=== PATIENT | female | born 1955 | race Caucasian/White ===

== ENCOUNTER 2017-07-06 05:54 | Day surgery (SDC) | payer BC ==
[2017-07-05 11:03] VITALS: BMI 22.6
[2017-07-06 06:38] VITALS: TEMP 97.9
[2017-07-06] MEDS ORDERED: LACTATED RINGERS SOLUTION 1,000 ML IV SCH (07:00)
[2017-07-06 07:18] LABS: EOSINOPHIL 2.4 % (0-4.5); MCH 25.6 pg (25.7-33.7); MCHC 32.2 g/dl (32.0-36.0); MEAN CELL VOLUME 79.5 fl (80-96); MEAN PLT VOLUME 11.6 fl (7.5-11.1); NEUTROPHILS 42.8 % (42.8-82.8); PLATELET COUNT 139 K/MM3 (134-434); RDW 16.1 % (11.6-15.6); WHITE BLOOD COUNT 4.1 K/mm3 (4.0-10.8)
--- NOTE | 2017-07-06 07:19 | HP ---
Admitting History and Physical - Admission History of Present Illness: Patient is a 62 y/o female with a past medical history of depression, chron's disease, CAD, [place], hyperlipidemia, and stress induced cardiomyopathy. Patient presents for ect, she reports receiving ect in 2013 after an admission in [facility] for depression. She reports ongoing feelings of depression and has tried several medication regimens with no relief. She denies any suicidal or homicidal ideation, visual or auditory hallucinations. History Source: Patient Limitations to Obtaining History: No Limitations - Past Medical History Cardiovascular: Yes: CAD, Hyperlipdemia, [place] Gastrointestinal: Yes: Crohn's Disease - Smoking History Smoking history: Never smoked Have you smoked in the past 12 months: No - Alcohol/Substance Use Hx Alcohol Use: No History of Substance Use: reports: None - Social History Usual Living Arrangement: Yes: With Spouse ADL: Independent History of Recent Travel: No Home Medications - Allergies Allergies/Adverse Reactions: Allergies Allergy/AdvReac Type Severity Reaction Status Date / Time Sulfa (Sulfonamide Allergy Intermediate Rash Verified 07/05/17 10:32 Antibiotics) - Home Medications Home Medications: Ambulatory Orders Aspirin [[place] Aspirin] 81 mg PO HS 07/05/17 Atenolol [Tenormin] 12.5 mg PO HS 07/05/17 Buprenorphine HCl/Naloxone HCl [Suboxone 8 mg-2 mg Sl Tablets] 1 each SL BID Calcium Carb/Vitamin D3/Vit K1 [Viactiv Soft Chew Tablet] 1 each PO BID Cholecalciferol (Vitamin D3) [Vitamin D3] 2,000 unit PO DAILY 07/05/17 Hydroxyzine HCl [Atarax -] 25 mg PO HS 07/05/17 Levomefolate/Algal Oil [l-Methylfolate Forte 15 mg Cap] 1 each PO DAILY Levomilnacipran HCl [Fetzima] 120 mg PO DAILY 07/05/17 Multivitamins [Tab-A-Vit -] 1 tab PO DAILY 07/05/17 Omeprazole 40 mg PO DAILY 07/05/17 Pentosan Polysulfate Sodium [Elmiron] 300 mg PO BID 07/05/17 Pregabalin [Lyrica -] 50 mg PO BID 07/05/17 Raloxifene HCl [Evista (Nf) -] 60 mg PO DAILY 07/05/17 Rosuvastatin [Crestor -] 20 mg PO HS 07/05/17 Vit C/E/Zn/Coppr/Lutein/Zeaxan [Preservision Areds 2 Softgel] 1 each PO BID Cyclosporine [Restasis] 1 drop OU HS 07/06/17 Family Disease History - Family Disease History Family Disease History: Heart Disease: Father, Mother, Other: Daughter (heroin abuse ) Review of Systems - Review of Systems Constitutional: reports: No Symptoms Eyes: reports: No Symptoms HENT: reports: No Symptoms Neck: reports: No Symptoms Cardiovascular: reports: No Symptoms Respiratory: reports: No Symptoms Gastrointestinal: reports: No Symptoms Genitourinary: reports: No Symptoms Musculoskeletal: reports: No Symptoms Integumentary: reports: No Symptoms Neurological: reports: No Symptoms Endocrine: reports: No Symptoms Hematology/Lymphatic: reports: No Symptoms Psychiatric: reports: Depression Physical Examination Vital Signs: Vital Signs Temperature 97.9 F 07/06/17 06:30 Pulse Rate 72 07/06/17 06:30 Respiratory Rate 18 07/06/17 06:30 Blood Pressure 107/67 07/06/17 06:30 O2 Sat by Pulse Oximetry (%) 100 07/06/17 06:30 Constitutional: Yes: Well Nourished, No Distress, Calm Eyes: Yes: WNL, Conjunctiva Clear, EOM Intact HENT: Yes: WNL, Atraumatic, Normocephalic Neck: Yes: WNL, Supple, Trachea Midline Cardiovascular: Yes: WNL, Regular Rate and Rhythm, S1, S2 Respiratory: Yes: WNL, Regular, CTA Bilaterally Gastrointestinal: Yes: WNL, Normal Bowel Sounds, Soft ...Rectal Exam: Yes: Deferred Renal/: Yes: WNL Breast(s): Yes: WNL Musculoskeletal: Yes: WNL Extremities: Yes: WNL Edema: No Peripheral Pulses WNL: Yes Peripheral Pulses: Left Radial: 4+, Right Radial: 4+, Left Doralis Pedis: 3+, Right Dorsalis Pedis: 3+, Left Femoral: 3+, Right Femoral: 3+ Integumentary: Yes: WNL Neurological: Yes: WNL, Alert, Oriented ...Motor Strength: WNL Psychiatric: Yes: WNL, Alert, Oriented Labs: CBC, BMP 07/06/17 06:00 CBC WBC 4.1 K/mm3 (4.0-10.8) 07/06/17 06:00 RBC 3.71 M/mm3 (3.60-5.2) 07/06/17 06:00 Hgb 9.5 GM/dl (10.7-15.3) L 07/06/17 06:00 Hct 29.5 % (32.4-45.2) L 07/06/17 06:00 MCV 79.5 fl (80-96) L 07/06/17 06:00 MCH 25.6 pg (25.7-33.7) L 07/06/17 06:00 MCHC 32.2 g/dl (32.0-36.0) 07/06/17 06:00 RDW 16.1 % (11.6-15.6) H 07/06/17 06:00 Plt Count 139 K/MM3 (134-434) 07/06/17 06:00 MPV 11.6 fl (7.5-11.1) H 07/06/17 06:00 Neutrophils % 42.8 % (42.8-82.8) 07/06/17 06:00 Lymphocytes % 42.1 % (8-40) H 07/06/17 06:00 Monocytes % 11.7 % (3.8-10.2) H 07/06/17 06:00 Eosinophils % 2.4 % (0-4.5) 07/06/17 06:00 Basophils % 1.0 % (0-2.0) 07/06/17 06:00 Imaging - Results EKG: Image Reviewed, Other (nsr) Other: Other (nuclear stress, no ischemic changes echo lvef 55%) Assessment/Plan patient is a 62 y/o female that presents for ect, labs and ekg reviewed, no signs of fluid overload noted on exam, patient is medically optimized for procedure informed consent, risk/benefits to be obtained by Dr George.
[2017-07-06] MEDS ORDERED: KETAMINE HCL 500 MG/10 ML VIAL ONE (08:11)
[2017-07-06 10:09] VITALS: PULSE 76
[2017-07-06 10:10] VITALS: BP 112/77
== END 2017-07-06 10:30 | disposition home or self-care (01) ==
LOC: FECT 05:54
PROVIDERS: ATTEND Psychiatry & Neurology Psychiatry
PROC: GZB4ZZZ Other Electroconvulsive Therapy (ICD-10-PCS; principal; 2017-07-06 08:00)
DX: F33.2 Major depressive disorder, recurrent severe without psychotic features (principal)
CPT/HCPCS: 36415; 80051; 82565; 85025; 90870; 94760

== ENCOUNTER 2017-07-08 05:49 | Day surgery (SDC) | payer BC ==
[2017-07-06 07:50] VITALS: BMI 22.6
[2017-07-08] MEDS ORDERED: KETAMINE HCL 500 MG/10 ML VIAL ONE (06:55)
[2017-07-08 08:07] VITALS: TEMP 98.2
[2017-07-08] MEDS ORDERED: ONDANSETRON 4 MG/2 ML VIAL IVPUSH PRN (09:31)
[2017-07-08] MEDS ORDERED: LACTATED RINGERS SOLUTION 1,000 ML IV SCH (09:45)
[2017-07-08 10:29] VITALS: BP 122/74; PULSE 62
== END 2017-07-08 10:10 | disposition home or self-care (01) ==
LOC: FECT 05:49
PROVIDERS: ATTEND Psychiatry & Neurology Psychiatry
PROC: GZB4ZZZ Other Electroconvulsive Therapy (ICD-10-PCS; principal; 2017-07-08 08:00)
DX: F33.2 Major depressive disorder, recurrent severe without psychotic features (principal)
CPT/HCPCS: 90870; 94760

== ENCOUNTER 2017-07-11 05:40 | Day surgery (SDC) | payer BC ==
[2017-07-06 07:53] VITALS: BMI 22.6
[2017-07-11] MEDS ORDERED: KETAMINE HCL 500 MG/10 ML VIAL ONE (07:26)
[2017-07-11 08:42] VITALS: TEMP 97.5
[2017-07-11 09:50] VITALS: BP 134/78; PULSE 64
[2017-07-11] MEDS ORDERED: ONDANSETRON 4 MG/2 ML VIAL IVPUSH PRN (12:56)
[2017-07-11] MEDS ORDERED: LACTATED RINGERS SOLUTION 1,000 ML IV SCH (13:00)
== END 2017-07-11 09:50 | disposition home or self-care (01) ==
LOC: FECT 05:40
PROVIDERS: ATTEND Psychiatry & Neurology Psychiatry
PROC: GZB4ZZZ Other Electroconvulsive Therapy (ICD-10-PCS; principal; 2017-07-11 07:30)
DX: F33.2 Major depressive disorder, recurrent severe without psychotic features (principal)
CPT/HCPCS: 90870; 94760

== ENCOUNTER 2017-07-13 05:40 | Day surgery (SDC) | payer BC ==
[2017-07-06 07:56] VITALS: BMI 22.6
[2017-07-13] MEDS ORDERED: KETAMINE HCL 500 MG/10 ML VIAL ONE (07:14)
[2017-07-13] MEDS ORDERED: LACTATED RINGERS SOLUTION 1,000 ML IV SCH (07:45)
[2017-07-13 08:13] VITALS: TEMP 97.5
[2017-07-13 08:55] VITALS: BP 118/78; PULSE 81
== END 2017-07-13 09:15 | disposition home or self-care (01) ==
LOC: FECT 05:40
PROVIDERS: ATTEND Psychiatry & Neurology Psychiatry
PROC: GZB4ZZZ Other Electroconvulsive Therapy (ICD-10-PCS; principal; 2017-07-13 07:45)
DX: F33.2 Major depressive disorder, recurrent severe without psychotic features (principal)
CPT/HCPCS: 90870; 94760

== ENCOUNTER 2017-07-15 05:41 | Day surgery (SDC) | payer BC ==
[2017-07-06 08:23] VITALS: BMI 22.6
[2017-07-15] MEDS ORDERED: KETAMINE HCL 500 MG/10 ML VIAL ONE (07:02)
[2017-07-15 08:10] VITALS: TEMP 97.6
[2017-07-15] MEDS ORDERED: ONDANSETRON 4 MG/2 ML VIAL IVPUSH PRN (08:55)
[2017-07-15] MEDS ORDERED: LACTATED RINGERS SOLUTION 1,000 ML IV SCH (09:00)
[2017-07-15 10:18] VITALS: BP 122/72; PULSE 72
== END 2017-07-15 09:20 | disposition home or self-care (01) ==
LOC: FECT 05:41
PROVIDERS: ATTEND Psychiatry & Neurology Psychiatry
PROC: GZB4ZZZ Other Electroconvulsive Therapy (ICD-10-PCS; principal; 2017-07-15 07:15)
DX: F33.2 Major depressive disorder, recurrent severe without psychotic features (principal)
CPT/HCPCS: 90870; 94760

== ENCOUNTER 2017-07-18 05:39 | Day surgery (SDC) | payer BC ==
[2017-07-07 11:51] VITALS: BMI 22.6
[2017-07-18] MEDS ORDERED: KETAMINE HCL 500 MG/10 ML VIAL ONE (06:48)
[2017-07-18 08:22] VITALS: TEMP 98.2
[2017-07-18 09:12] VITALS: BP 114/58; PULSE 82
== END 2017-07-18 09:14 | disposition home or self-care (01) ==
LOC: FECT 05:39
PROVIDERS: ATTEND Psychiatry & Neurology Psychiatry
PROC: GZB4ZZZ Other Electroconvulsive Therapy (ICD-10-PCS; principal; 2017-07-18 07:00)
DX: F33.2 Major depressive disorder, recurrent severe without psychotic features (principal)
CPT/HCPCS: 90870; 94760

== ENCOUNTER 2017-07-20 05:39 | Day surgery (SDC) | payer BC ==
[2017-07-11 13:44] VITALS: BMI 22.6
[2017-07-20 06:44] VITALS: TEMP 97.9
[2017-07-20] MEDS ORDERED: KETAMINE HCL 500 MG/10 ML VIAL ONE (07:34)
[2017-07-20 08:58] VITALS: BP 114/69; PULSE 66
== END 2017-07-20 09:25 | disposition home or self-care (01) ==
LOC: FECT 05:39
PROVIDERS: ATTEND Psychiatry & Neurology Psychiatry
PROC: GZB4ZZZ Other Electroconvulsive Therapy (ICD-10-PCS; principal; 2017-07-20 07:00)
DX: F33.2 Major depressive disorder, recurrent severe without psychotic features (principal)
CPT/HCPCS: 90870; 94760

== ENCOUNTER 2017-07-22 05:39 | Day surgery (SDC) | payer BC ==
[2017-07-22 06:22] VITALS: BMI 22.6
[2017-07-22] MEDS ORDERED: KETAMINE HCL 500 MG/10 ML VIAL ONE (06:59)
[2017-07-22 08:02] VITALS: TEMP 98.5
[2017-07-22 09:19] VITALS: BP 118/78; PULSE 66
== END 2017-07-22 09:15 | disposition home or self-care (01) ==
LOC: FECT 05:39
PROVIDERS: ATTEND Psychiatry & Neurology Psychiatry
PROC: GZB4ZZZ Other Electroconvulsive Therapy (ICD-10-PCS; principal; 2017-07-22 07:00)
DX: F33.2 Major depressive disorder, recurrent severe without psychotic features (principal)
CPT/HCPCS: 90870; 94760

== ENCOUNTER → 2017-07-25 | Day surgery (SDC) | payer BC ==
[~2017-07-25] MED LIST: ACETAMINOPHEN 325 MG TABLET (FP) ONE; KETAMINE HCL 500 MG/10 ML VIAL ONE
[2017-07-25 06:20] VITALS: BMI 22.6
[2017-07-25 08:04] VITALS: BP 116/72; PULSE 66; TEMP 97.8
== END | disposition home or self-care (01) ==
LOC: FECT 05:40
PROVIDERS: ATTEND Psychiatry & Neurology Psychiatry
PROC: GZB4ZZZ Other Electroconvulsive Therapy (ICD-10-PCS; principal; 2017-07-25 07:00)
DX: F33.2 Major depressive disorder, recurrent severe without psychotic features (principal)
CPT/HCPCS: 90870; 94760

== ENCOUNTER 2017-07-27 05:43 | Day surgery (SDC) | payer BC ==
[2017-07-20 17:05] VITALS: BMI 22.6
[2017-07-27] MEDS ORDERED: KETAMINE HCL 500 MG/10 ML VIAL ONE (07:16)
[2017-07-27] MEDS ORDERED: ACETAMINOPHEN 325 MG TABLET (FP) PO ONE (08:02)
[2017-07-27 08:17] VITALS: TEMP 97.7
[2017-07-27 12:38] VITALS: BP 116/70; PULSE 65
== END 2017-07-27 08:55 | disposition home or self-care (01) ==
LOC: FECT 05:43
PROVIDERS: ATTEND Psychiatry & Neurology Psychiatry
PROC: GZB4ZZZ Other Electroconvulsive Therapy (ICD-10-PCS; principal; 2017-07-27 07:00)
DX: F33.2 Major depressive disorder, recurrent severe without psychotic features (principal)
CPT/HCPCS: 90870; 94760

== ENCOUNTER 2017-07-29 05:39 | Day surgery (SDC) | payer BC ==
[2017-07-20 17:09] VITALS: BMI 22.6
[2017-07-29] MEDS ORDERED: KETAMINE HCL 500 MG/10 ML VIAL ONE (07:04)
[2017-07-29] MEDS ORDERED: ONDANSETRON 4 MG/2 ML VIAL IVPUSH PRN (07:36)
[2017-07-29] MEDS ORDERED: LACTATED RINGERS SOLUTION 1,000 ML IV SCH (07:45)
[2017-07-29 07:53] VITALS: TEMP 98
[2017-07-29 08:32] VITALS: BP 118/74; PULSE 61
[2017-07-29] MEDS ORDERED: TRANEXAMIC ACID 1000 MG/10 ML VIAL ONE (09:57)
== END 2017-07-29 08:45 | disposition home or self-care (01) ==
LOC: FECT 05:39
PROVIDERS: ATTEND Psychiatry & Neurology Psychiatry
PROC: GZB4ZZZ Other Electroconvulsive Therapy (ICD-10-PCS; principal; 2017-07-29 07:00)
DX: F33.2 Major depressive disorder, recurrent severe without psychotic features (principal)
CPT/HCPCS: 90870; 94760

== ENCOUNTER 2017-08-01 05:42 | Day surgery (SDC) | payer BC ==
[2017-07-25 08:13] VITALS: BMI 22.6
[2017-08-01 08:45] VITALS: PULSE 58; TEMP 97.5
[2017-08-01 09:10] VITALS: BP 111/69
[2017-08-01] MEDS ORDERED: ONDANSETRON 4 MG/2 ML VIAL IVPUSH PRN (09:44)
== END 2017-08-01 09:32 | disposition home or self-care (01) ==
LOC: FECT 05:42
PROVIDERS: ATTEND Psychiatry & Neurology Psychiatry
PROC: GZB4ZZZ Other Electroconvulsive Therapy (ICD-10-PCS; principal; 2017-08-01 07:15)
DX: F33.2 Major depressive disorder, recurrent severe without psychotic features (principal)
CPT/HCPCS: 90870; 94760

== ENCOUNTER 2017-08-03 05:41 | Day surgery (SDC) | payer BC ==
[2017-08-01 17:13] VITALS: BMI 22.6
[2017-08-03] MEDS ORDERED: KETAMINE HCL 500 MG/10 ML VIAL ONE (06:57)
[2017-08-03 08:06] VITALS: TEMP 97.9
[2017-08-03 09:11] VITALS: BP 105/65; PULSE 62
== END 2017-08-03 09:14 | disposition home or self-care (01) ==
LOC: FECT 05:41
PROVIDERS: ATTEND Psychiatry & Neurology Psychiatry
PROC: GZB4ZZZ Other Electroconvulsive Therapy (ICD-10-PCS; principal; 2017-08-03 08:15)
DX: F33.2 Major depressive disorder, recurrent severe without psychotic features (principal)
CPT/HCPCS: 90870; 94760

== ENCOUNTER 2017-08-05 05:45 | Day surgery (SDC) | payer BC ==
[2017-08-03 07:26] VITALS: BMI 22.6
[2017-08-05] MEDS ORDERED: KETAMINE HCL 500 MG/10 ML VIAL ONE (08:04)
[2017-08-05] MEDS ORDERED: ONDANSETRON 4 MG/2 ML VIAL IVPUSH PRN (08:17)
[2017-08-05] MEDS ORDERED: PROMETHAZINE HCL 25 MG/1 ML VIAL IVPUSH PRN (08:17)
[2017-08-05] MEDS ORDERED: LACTATED RINGERS SOLUTION 1,000 ML IV SCH (08:30)
[2017-08-05 09:10] VITALS: TEMP 98.1
[2017-08-05] MEDS ORDERED: ACETAMINOPHEN 325 MG TABLET (FP) ONE (09:52)
[2017-08-05 09:55] VITALS: BP 120/80; PULSE 74
== END 2017-08-05 10:00 | disposition home or self-care (01) ==
LOC: FECT 05:45
PROVIDERS: ATTEND Psychiatry & Neurology Psychiatry
PROC: GZB4ZZZ Other Electroconvulsive Therapy (ICD-10-PCS; principal; 2017-08-05 08:00)
DX: F33.2 Major depressive disorder, recurrent severe without psychotic features (principal)
CPT/HCPCS: 90870; 94760

== ENCOUNTER → 2017-08-08 | Day surgery (SDC) | payer BC ==
[2017-08-03 13:12] VITALS: BMI 22.6
[~2017-08-08] MED LIST changes: -ACETAMINOPHEN 325 MG TABLET (FP) ONE; +LACTATED RINGERS SOLUTION 1,000 ML IV SCH; +ONDANSETRON 4 MG/2 ML VIAL IVPUSH PRN; +PROMETHAZINE HCL 25 MG/1 ML VIAL IVPUSH PRN
--- NOTE | 2017-08-08 07:20 | HP ---
Admitting History and Physical - Admission History of Present Illness: patient is a 62 y/o female with a past medical history of depression, chrohn' s disease, CAD, [place], hyperlipidemia and stress induced cardiomyopathy. Patient presents for ect, her last ect was 08/05/17. Patient reports ongoing feelings of depression. She reports not much improvement of depressive symptoms since starting ect. Patient is weaning down her suboxone to 4mg daily in preparation for her upcoming colectomy that is scheduled on 09/07 at [facility].patient denies any suicidal or homicidal ideation, visual or auditory hallucinations. History Source: Patient Limitations to Obtaining History: No Limitations - Past Medical History Cardiovascular: Yes: CAD, Hyperlipdemia, [place] Gastrointestinal: Yes: Crohn's Disease - Smoking History Smoking history: Never smoked Have you smoked in the past 12 months: No - Alcohol/Substance Use Hx Alcohol Use: No History of Substance Use: reports: None - Social History Usual Living Arrangement: Yes: With Spouse ADL: Independent History of Recent Travel: No Home Medications - Allergies Allergies/Adverse Reactions: Allergies Allergy/AdvReac Type Severity Reaction Status Date / Time Sulfa (Sulfonamide Allergy Intermediate Rash Verified 07/15/17 06:08 Antibiotics) - Home Medications Home Medications: Ambulatory Orders Aspirin [[place] Aspirin] 81 mg PO HS 07/05/17 Atenolol [Tenormin] 12.5 mg PO HS 07/05/17 Buprenorphine HCl/Naloxone HCl [Suboxone 8 mg-2 mg Sl Tablets] 1 each SL BID Calcium Carb/Vitamin D3/Vit K1 [Viactiv Soft Chew] 1 each PO BID 07/05/17 Cholecalciferol (Vitamin D3) [Vitamin D3] 2,000 unit PO BID 07/05/17 Hydroxyzine HCl [Atarax -] 25 mg PO HS 07/05/17 Levomefolate/Algal Oil [l-Methylfolate Forte 15 mg Cap] 1 each PO DAILY Levomilnacipran HCl [Fetzima] 120 mg PO DAILY 07/05/17 Multivitamins [Multivit ([facility] Formulary)] 1 tab PO DAILY 07/05/17 Omeprazole 40 mg PO DAILY 07/05/17 Pentosan Polysulfate Sodium [Elmiron] 300 mg PO BID 07/05/17 Pregabalin [Lyrica -] 50 mg PO BID 07/05/17 Raloxifene HCl [Evista (Nf) -] 60 mg PO DAILY 07/05/17 Rosuvastatin [Crestor -] 20 mg PO HS 07/05/17 Vit C/E/Zn/Coppr/Lutein/Zeaxan [Preservision Areds 2 Softgel] 1 each PO BID Cyclosporine [Restasis] 1 drop OU HS 07/06/17 Family Disease History - Family Disease History Family Disease History: Heart Disease: Father, Mother, Other: Daughter (heroin abuse ) Review of Systems - Review of Systems Constitutional: reports: No Symptoms Eyes: reports: No Symptoms HENT: reports: No Symptoms Neck: reports: No Symptoms Cardiovascular: reports: No Symptoms Respiratory: reports: No Symptoms Gastrointestinal: reports: No Symptoms Genitourinary: reports: No Symptoms Musculoskeletal: reports: No Symptoms Integumentary: reports: No Symptoms Neurological: reports: No Symptoms Endocrine: reports: No Symptoms Hematology/Lymphatic: reports: No Symptoms Psychiatric: reports: Depression Physical Examination Constitutional: Yes: Well Nourished, No Distress, Calm Eyes: Yes: WNL, Conjunctiva Clear, EOM Intact HENT: Yes: WNL, Atraumatic, Normocephalic Neck: Yes: WNL, Supple, Trachea Midline Cardiovascular: Yes: WNL, Regular Rate and Rhythm, S1, S2 Respiratory: Yes: WNL, Regular, CTA Bilaterally Gastrointestinal: Yes: WNL, Normal Bowel Sounds, Soft ...Rectal Exam: Yes: Deferred Renal/: Yes: WNL Breast(s): Yes: WNL Musculoskeletal: Yes: WNL Extremities: Yes: WNL Edema: No Peripheral Pulses WNL: Yes Integumentary: Yes: WNL Neurological: Yes: WNL, Alert, Oriented ...Motor Strength: WNL Psychiatric: Yes: WNL, Alert, Oriented, Other (flat affect) Labs: reviewed 07/06/17 Imaging - Results EKG: Other (nsr) Other: Other (lvef 55%) Assessment/Plan patient is a 62 y/o female that presents for ect, labs and ekg reviewed patient is medically optimized for procedure informed consent, risks/benefits to be obtained by Dr George.
[2017-08-08 09:10] VITALS: TEMP 97.8
[2017-08-08 10:24] VITALS: BP 118/70; PULSE 59
== END | disposition home or self-care (01) ==
LOC: FECT 05:27
PROVIDERS: ATTEND Psychiatry & Neurology Psychiatry
PROC: GZB4ZZZ Other Electroconvulsive Therapy (ICD-10-PCS; principal; 2017-08-08 07:30)
DX: F33.2 Major depressive disorder, recurrent severe without psychotic features (principal)
CPT/HCPCS: 90870; 94760

== ENCOUNTER 2017-08-19 07:27 | Day surgery (SDC) | payer BC ==
[2017-08-19 07:43] VITALS: TEMP 98.1; BMI 22.6
[2017-08-19] MEDS ORDERED: KETAMINE HCL 500 MG/10 ML VIAL ONE (08:51)
[2017-08-19 10:27] VITALS: BP 113/68; PULSE 72
== END 2017-08-19 10:30 | disposition home or self-care (01) ==
LOC: FECT 07:27
PROVIDERS: ATTEND Psychiatry & Neurology Psychiatry
PROC: GZB4ZZZ Other Electroconvulsive Therapy (ICD-10-PCS; principal; 2017-08-19 08:45)
DX: F33.2 Major depressive disorder, recurrent severe without psychotic features (principal)
CPT/HCPCS: 90870; 94760

== ENCOUNTER 2017-11-25 05:48 | Day surgery (SDC) | payer BC ==
[2017-11-25 07:31] VITALS: BMI 20.9
[2017-11-25 07:33] VITALS: TEMP 97.9
[2017-11-25] MEDS ORDERED: ONDANSETRON 4 MG/2 ML VIAL IVPUSH PRN (07:46)
[2017-11-25] MEDS ORDERED: oxyCODONE HCL 5 MG TABLET PO PRN (07:46)
--- NOTE | 2017-11-25 08:14 | HP ---
Admitting History and Physical - Admission History of Present Illness: Patient is a 62 y/o female with a past medical history of chrohn's disease, depression, CAD, [place], hyperlipidemia, and stress induced cardiomyopathy. Patient is a s/p colectomy, 09/12/17. Patient presents for ect, her last ect was 08/19/17. Patient reports ongoing depression, she reports compliance with prescribed medications. She denies any suicidal or homicidal ideation, visual or auditory hallucinations. History Source: Patient Limitations to Obtaining History: No Limitations - Past Medical History Cardiovascular: Yes: CAD, Hyperlipdemia, [place] Gastrointestinal: Yes: Crohn's Disease - Smoking History Smoking history: Never smoked Have you smoked in the past 12 months: No - Alcohol/Substance Use Hx Alcohol Use: No History of Substance Use: reports: None - Social History Usual Living Arrangement: Yes: With Spouse ADL: Independent History of Recent Travel: No Home Medications - Allergies Allergies/Adverse Reactions: Allergies Allergy/AdvReac Type Severity Reaction Status Date / Time Sulfa (Sulfonamide Allergy Intermediate Rash Verified 07/15/17 06:08 Antibiotics) - Home Medications Home Medications: Ambulatory Orders Aspirin [[place] Aspirin] 81 mg PO HS 07/05/17 Atenolol [Tenormin] 12.5 mg PO HS 07/05/17 Calcium Carb/Vitamin D3/Vit K1 [Viactiv Soft Chew] 1 each PO BID 07/05/17 Cholecalciferol (Vitamin D3) [Vitamin D3] 2,000 unit PO BID 07/05/17 Levomefolate/Algal Oil [l-Methylfolate Forte 15 mg Cap] 1 each PO DAILY Levomilnacipran HCl [Fetzima] 120 mg PO DAILY 07/05/17 Multivitamins [Multivit ([facility] Formulary)] 1 tab PO DAILY 07/05/17 Omeprazole 40 mg PO DAILY 07/05/17 Pentosan Polysulfate Sodium [Elmiron] 300 mg PO BID 07/05/17 Raloxifene HCl [Evista (Nf) -] 60 mg PO DAILY 07/05/17 Rosuvastatin [Crestor -] 20 mg PO HS 07/05/17 Vit C/E/Zn/Coppr/Lutein/Zeaxan [Preservision Areds 2 Softgel] 1 each PO BID hydrOXYzine HCL [Atarax -] 25 mg PO HS 07/05/17 Cyclosporine [Restasis] 1 drop OU HS 07/06/17 Fentanyl 1 each TD ASDIR 08/19/17 Folic Acid 1 mg PO DAILY 11/25/17 HYDROmorphone [Dilaudid -] 4 mg PO Q4H 11/25/17 Iron,Carbonyl [Feosol] 45 mg PO BID 11/25/17 Pramipexole Di-HCl [Mirapex] 0.25 mg PO HS 11/25/17 Ustekinumab [Stelara] 90 mg SQ ASDIR 11/25/17 Family Disease History - Family Disease History Family Disease History: Heart Disease: Father, Mother, Other: Daughter (heroin abuse ) Review of Systems - Review of Systems Constitutional: reports: No Symptoms Eyes: reports: No Symptoms HENT: reports: No Symptoms Neck: reports: No Symptoms Cardiovascular: reports: No Symptoms Respiratory: reports: No Symptoms Gastrointestinal: reports: No Symptoms Genitourinary: reports: No Symptoms Musculoskeletal: reports: No Symptoms Integumentary: reports: No Symptoms Neurological: reports: No Symptoms Endocrine: reports: No Symptoms Hematology/Lymphatic: reports: No Symptoms Psychiatric: reports: Depression Physical Examination Vital Signs: Vital Signs Temperature 97.9 F 11/25/17 07:20 Pulse Rate 81 11/25/17 07:20 Respiratory Rate 18 11/25/17 07:20 Blood Pressure 89/62 11/25/17 07:20 O2 Sat by Pulse Oximetry (%) 100 11/25/17 07:20 Constitutional: Yes: No Distress, Thin Eyes: Yes: WNL, Conjunctiva Clear, EOM Intact HENT: Yes: WNL, Atraumatic, Normocephalic Neck: Yes: WNL, Supple, Trachea Midline Cardiovascular: Yes: WNL, Regular Rate and Rhythm, S1, S2 Respiratory: Yes: WNL, Regular, CTA Bilaterally Gastrointestinal: Yes: WNL, Normal Bowel Sounds, Soft, Other (surgical site well approximated, no erythema no induration noted) ...Rectal Exam: Yes: Deferred Renal/: Yes: WNL Breast(s): Yes: WNL Musculoskeletal: Yes: WNL Extremities: Yes: WNL Edema: No Peripheral Pulses WNL: Yes Peripheral Pulses: Left Radial: 4+, Right Radial: 4+, Left Doralis Pedis: 3+, Right Dorsalis Pedis: 3+, Left Femoral: 3+, Right Femoral: 3+ Integumentary: Yes: WNL Neurological: Yes: WNL, Alert, Oriented ...Motor Strength: WNL Psychiatric: Yes: WNL, Alert, Oriented Labs: reviewed 07/08 Imaging - Results EKG: Image Reviewed, Other (nsr) Assessment/Plan patient is a 62 y/o female that presents for ect, labs and ekg reviewed patient is medically optimized for procedure informed consent, risks benefits to be obtained by Dr George.
[2017-11-25] MEDS ORDERED: KETAMINE HCL 500 MG/10 ML VIAL ONE (08:27)
[2017-11-25 09:42] VITALS: BP 110/74; PULSE 77
[2017-11-25 10:43] LABS: ALBUMIN 3.7 g/dl (3.5-5.0); ALK PHOS 64 U/L (32-92); ANION GAP 4 (8-16); BILIRUBIN,TOTAL < 0.5 mg/dl (0.2-1.0); BLOOD UREA NITROGEN 13 mg/dl (7-18); CALCIUM 9.1 mg/dl (8.4-10.2); CHLORIDE 107 mmol/L (98-107); CO2 26 mmol/L (22-28); CREATININE < 0.8 mg/dl (0.6-1.3); GLUCOSE,RANDOM 125 mg/dl (74-106); POTASSIUM 4.2 mmol/L (3.5-5.1); SGOT/AST 22 U/L (10-42); SGPT/ALT 19 U/L (10-40); SODIUM 137 mmol/L (136-145); TOT PROT 7.1 g/dl (6.4-8.3)
[2017-11-25 13:01] LABS: HEMATOCRIT 38.8 % (32.4-45.2); HEMOGLOBIN 12.3 GM/dL (10.7-15.3); MCH 26.9 pg (25.7-33.7); MCHC 31.8 g/dl (32.0-36.0); MEAN CELL VOLUME 84.5 fl (80-96); MEAN PLT VOLUME 10.1 fl (7.5-11.1); PLATELET COUNT 171 K/MM3 (134-434); RBC 4.59 M/mm3 (3.60-5.2); RDW 24.7 % (11.6-15.6); WHITE BLOOD COUNT 3.3 K/mm3 (4.0-10.0)
--- NOTE | 2017-11-26 11:00 | EKG ---
Test Reason : Blood Pressure : / mmHG Vent. Rate : 074 BPM Atrial Rate : 074 BPM P-R Int : 156 ms QRS Dur : 092 ms QT Int : 432 ms P-R-T Axes : 043 023 052 degrees QTc Int : 479 ms NORMAL SINUS RHYTHM NORMAL ECG NO PREVIOUS ECGS AVAILABLE Confirmed by FAISAL MACKAY, EB ([id number]) on 11/26/2017 10:59:49 AM Referred By: Terence George Confirmed By:EB MALONE MD
== END 2017-11-25 10:10 | disposition home or self-care (01) ==
LOC: FECT 05:48
PROVIDERS: ATTEND Psychiatry & Neurology Psychiatry
PROC: GZB4ZZZ Other Electroconvulsive Therapy (ICD-10-PCS; principal; 2017-11-25 08:15)
DX: F33.2 Major depressive disorder, recurrent severe without psychotic features (principal)
CPT/HCPCS: 36415; 80053; 85027; 90870; 93005; 94760

== ENCOUNTER 2017-11-28 05:39 | Day surgery (SDC) | payer BC ==
[2017-11-25 10:35] VITALS: BMI 20.9
[2017-11-28 06:08] VITALS: TEMP 98
[2017-11-28] MEDS ORDERED: KETAMINE HCL 500 MG/10 ML VIAL ONE (06:56)
[2017-11-28] MEDS ORDERED: oxyCODONE HCL 5 MG TABLET PO PRN ×2 (07:24)
[2017-11-28 09:04] VITALS: BP 110/60; PULSE 54
== END 2017-11-28 09:00 | disposition home or self-care (01) ==
LOC: FECT 05:39
PROVIDERS: ATTEND Psychiatry & Neurology Psychiatry
PROC: GZB4ZZZ Other Electroconvulsive Therapy (ICD-10-PCS; principal; 2017-11-28 07:30)
DX: F33.2 Major depressive disorder, recurrent severe without psychotic features (principal)
CPT/HCPCS: 90870; 94760

== ENCOUNTER 2017-12-01 05:40 | Day surgery (SDC) | payer BC ==
[2017-11-25 10:33] VITALS: BMI 20.9
[2017-12-01 06:22] VITALS: TEMP 98
[2017-12-01] MEDS ORDERED: KETAMINE HCL 500 MG/10 ML VIAL ONE (06:58)
[2017-12-01 09:51] VITALS: PULSE 67
[2017-12-01 09:57] VITALS: BP 110/78
== END 2017-12-01 09:15 | disposition home or self-care (01) ==
LOC: FECT 05:40
PROVIDERS: ATTEND Psychiatry & Neurology Psychiatry
PROC: GZB4ZZZ Other Electroconvulsive Therapy (ICD-10-PCS; principal; 2017-12-01 07:15)
DX: F33.2 Major depressive disorder, recurrent severe without psychotic features (principal)

== ENCOUNTER 2017-12-20 05:47 | Day surgery (SDC) | payer BC ==
[2017-12-15 15:43] VITALS: BMI 20.9
[2017-12-20 06:25] VITALS: TEMP 98
[2017-12-20] MEDS ORDERED: KETAMINE HCL 500 MG/10 ML VIAL ONE (07:35)
[2017-12-20 09:03] VITALS: BP 118/74; PULSE 74
== END 2017-12-20 09:05 | disposition home or self-care (01) ==
LOC: FECT 05:47
PROVIDERS: ATTEND Psychiatry & Neurology Psychiatry
PROC: GZB4ZZZ Other Electroconvulsive Therapy (ICD-10-PCS; principal; 2017-12-20 07:45)
DX: F33.2 Major depressive disorder, recurrent severe without psychotic features (principal)
CPT/HCPCS: 90870; 94760

== ENCOUNTER 2017-12-22 05:55 | Day surgery (SDC) | payer BC ==
[2017-12-21 10:06] VITALS: BMI 20.9
[2017-12-22 08:23] VITALS: TEMP 98.3
[2017-12-22 09:08] VITALS: BP 110/70; PULSE 67
== END 2017-12-22 09:05 | disposition home or self-care (01) ==
LOC: FECT 05:55
PROVIDERS: ATTEND Psychiatry & Neurology Psychiatry
PROC: GZB4ZZZ Other Electroconvulsive Therapy (ICD-10-PCS; principal; 2017-12-22 07:15)
DX: F33.2 Major depressive disorder, recurrent severe without psychotic features (principal)
CPT/HCPCS: 90870; 94760

== ENCOUNTER 2017-12-27 05:40 | Day surgery (SDC) | payer BC ==
[2017-12-27 07:02] VITALS: TEMP 98; BMI 20.9
--- NOTE | 2017-12-27 07:15 | HP ---
Admitting History and Physical - Admission History of Present Illness: Patient is a 62 y/o female, with a past medical history of [place], CAD, crohn's disease, depression, hyperlipidemia, and stress induced cardiomyopathy. Patient presents for ect, her last ect was 12/22/17. Patient reports feeling well, she reports an improvement in depressive symptoms since starting ect. patient denies any changes in medications and reports compliance with prescribed medications. patient denies any recent illnesses or hospitalizations. She denies any suicidal or homicidal ideation, visual or auditory hallucinations. History Source: Patient Limitations to Obtaining History: No Limitations - Past Medical History Cardiovascular: Yes: CAD, Hyperlipdemia, [place] Gastrointestinal: Yes: Crohn's Disease - Smoking History Smoking history: Never smoked Have you smoked in the past 12 months: No - Alcohol/Substance Use Hx Alcohol Use: No History of Substance Use: reports: None - Social History Usual Living Arrangement: Yes: With Spouse ADL: Independent History of Recent Travel: No Home Medications - Allergies Allergies/Adverse Reactions: Allergies Allergy/AdvReac Type Severity Reaction Status Date / Time Sulfa (Sulfonamide Allergy Intermediate Rash Verified 07/15/17 06:08 Antibiotics) - Home Medications Home Medications: Ambulatory Orders Atenolol [Tenormin] 12.5 mg PO HS 07/05/17 Levomilnacipran HCl [Fetzima] 120 mg PO DAILY 07/05/17 Multivitamins [Multivit ([facility] Formulary)] 1 tab PO DAILY 07/05/17 Omeprazole 40 mg PO DAILY 07/05/17 Pentosan Polysulfate Sodium [Elmiron] 300 mg PO BID 07/05/17 Raloxifene HCl [Evista (Nf) -] 60 mg PO HS 07/05/17 Rosuvastatin [Crestor -] 20 mg PO HS 07/05/17 Vit C/E/Zn/Coppr/Lutein/Zeaxan [Preservision Areds 2 Softgel] 1 each PO BID Cyclosporine [Restasis] 1 drop OU HS 07/06/17 Iron,Carbonyl [Feosol] 45 mg PO BID 11/25/17 Pramipexole Di-HCl [Mirapex] 0.25 mg PO HS 11/25/17 Ustekinumab [Stelara] 90 mg SQ ASDIR 11/25/17 Aspirin [Aspirin EC] 81 mg PO HS 12/27/17 Eszopiclone [Lunesta] 3 mg PO HS 12/27/17 Family Disease History - Family Disease History Family Disease History: Heart Disease: Father, Mother, Other: Daughter (heroin abuse ) Review of Systems - Review of Systems Constitutional: reports: No Symptoms Eyes: reports: No Symptoms HENT: reports: No Symptoms Neck: reports: No Symptoms Cardiovascular: reports: No Symptoms Respiratory: reports: No Symptoms Gastrointestinal: reports: No Symptoms Genitourinary: reports: No Symptoms Musculoskeletal: reports: No Symptoms Integumentary: reports: No Symptoms Neurological: reports: No Symptoms Endocrine: reports: No Symptoms Hematology/Lymphatic: reports: No Symptoms Psychiatric: reports: No Symptoms Physical Examination Vital Signs: Vital Signs Temperature 98.0 F 12/27/17 06:57 Pulse Rate 60 12/27/17 06:57 Respiratory Rate 18 12/27/17 06:57 Blood Pressure 88/60 12/27/17 06:57 O2 Sat by Pulse Oximetry (%) 99 12/27/17 06:57 Constitutional: Yes: Well Nourished, No Distress, Calm Eyes: Yes: WNL, Conjunctiva Clear, EOM Intact HENT: Yes: WNL, Atraumatic, Normocephalic Neck: Yes: WNL, Supple, Trachea Midline Cardiovascular: Yes: WNL, Regular Rate and Rhythm, S1, S2 Respiratory: Yes: WNL, Regular, CTA Bilaterally Gastrointestinal: Yes: WNL, Normal Bowel Sounds, Soft ...Rectal Exam: Yes: Deferred Renal/: Yes: WNL Breast(s): Yes: WNL Musculoskeletal: Yes: WNL Extremities: Yes: WNL Edema: No Peripheral Pulses WNL: Yes Integumentary: Yes: WNL Neurological: Yes: WNL, Alert, Oriented ...Motor Strength: WNL Psychiatric: Yes: WNL, Alert, Oriented Imaging - Results EKG: Image Reviewed, Other (nsr) Assessment/Plan patient is a 62 y/o female, that presents for ect, labs and ekg reviewed patient is medically optimized for procedure informed consent, risks/benefits to be obtained by Dr Georeg
[2017-12-27] MEDS ORDERED: KETAMINE HCL 500 MG/10 ML VIAL ONE (07:25)
[2017-12-27 08:59] VITALS: BP 101/61; PULSE 56
== END 2017-12-27 09:15 | disposition home or self-care (01) ==
LOC: FECT 05:40
PROVIDERS: ATTEND Psychiatry & Neurology Psychiatry
PROC: GZB4ZZZ Other Electroconvulsive Therapy (ICD-10-PCS; principal; 2017-12-27 07:45)
DX: F33.2 Major depressive disorder, recurrent severe without psychotic features (principal)
CPT/HCPCS: 90870; 94760

== ENCOUNTER 2017-12-30 05:36 | Day surgery (SDC) | payer BC ==
[2017-12-29 13:18] VITALS: BMI 20.9
[2017-12-30 07:53] VITALS: TEMP 97.6
[2017-12-30] MEDS ORDERED: KETAMINE HCL 500 MG/10 ML VIAL ONE (08:29)
[2017-12-30 09:58] VITALS: BP 110/67; PULSE 67
== END 2017-12-30 09:45 | disposition home or self-care (01) ==
LOC: FECT 05:36
PROVIDERS: ATTEND Psychiatry & Neurology Psychiatry
PROC: GZB4ZZZ Other Electroconvulsive Therapy (ICD-10-PCS; principal; 2017-12-30 08:45)
DX: F33.2 Major depressive disorder, recurrent severe without psychotic features (principal)
CPT/HCPCS: 90870; 94760

== ENCOUNTER 2018-01-03 05:43 | Day surgery (SDC) | payer BC ==
[2018-01-03 06:26] VITALS: BMI 20.9
[2018-01-03] MEDS ORDERED: KETAMINE HCL 500 MG/10 ML VIAL ONE (07:06)
[2018-01-03 09:18] VITALS: TEMP 97.9
[2018-01-03 09:23] VITALS: BP 104/64; PULSE 78
== END 2018-01-03 09:28 | disposition home or self-care (01) ==
LOC: FECT 05:43
PROVIDERS: ATTEND Psychiatry & Neurology Psychiatry
PROC: GZB4ZZZ Other Electroconvulsive Therapy (ICD-10-PCS; principal; 2018-01-03 07:45)
DX: F33.2 Major depressive disorder, recurrent severe without psychotic features (principal)
CPT/HCPCS: 90870; 94760

== ENCOUNTER 2018-01-06 05:37 | Day surgery (SDC) | payer BC ==
[2018-01-06 06:33] VITALS: BMI 21.0
[2018-01-06] MEDS ORDERED: KETAMINE HCL 500 MG/10 ML VIAL ONE (07:33)
[2018-01-06 08:44] VITALS: TEMP 97.9
[2018-01-06 09:01] VITALS: BP 101/68; PULSE 66
== END 2018-01-06 08:55 | disposition home or self-care (01) ==
LOC: FECT 05:37
PROVIDERS: ATTEND Psychiatry & Neurology Psychiatry
PROC: GZB4ZZZ Other Electroconvulsive Therapy (ICD-10-PCS; principal; 2018-01-06 08:00)
DX: F33.2 Major depressive disorder, recurrent severe without psychotic features (principal)
CPT/HCPCS: 90870; 94760

== ENCOUNTER 2018-01-10 05:50 | Day surgery (SDC) | payer BC ==
[2018-01-06 15:17] VITALS: BMI 20.9
[2018-01-10] MEDS ORDERED: ONDANSETRON 4 MG/2 ML VIAL IVPUSH PRN (07:21)
[2018-01-10] MEDS ORDERED: ACETAMINOPHEN 325 MG TABLET (FP) PO PRN (07:21)
[2018-01-10] MEDS ORDERED: KETAMINE HCL 500 MG/10 ML VIAL ONE (07:40)
[2018-01-10 08:52] VITALS: TEMP 98
[2018-01-10 09:09] VITALS: BP 93/56; PULSE 61
== END 2018-01-10 09:15 | disposition home or self-care (01) ==
LOC: FECT 05:50
PROVIDERS: ATTEND Psychiatry & Neurology Psychiatry
PROC: GZB4ZZZ Other Electroconvulsive Therapy (ICD-10-PCS; principal; 2018-01-10 08:30)
DX: F33.2 Major depressive disorder, recurrent severe without psychotic features (principal)
CPT/HCPCS: 90870; 94760

== ENCOUNTER 2018-01-12 05:43 | Day surgery (SDC) | payer BC ==
[2018-01-06 15:34] VITALS: BMI 20.9
[2018-01-12] MEDS ORDERED: KETAMINE HCL 500 MG/10 ML VIAL ONE (07:02)
[2018-01-12] MEDS ORDERED: ONDANSETRON 4 MG/2 ML VIAL IVPUSH PRN (07:50)
[2018-01-12 09:01] VITALS: TEMP 97.8
[2018-01-12 09:02] VITALS: BP 101/61; PULSE 59
== END 2018-01-12 09:00 | disposition home or self-care (01) ==
LOC: FECT 05:43
PROVIDERS: ATTEND Psychiatry & Neurology Psychiatry
PROC: GZB4ZZZ Other Electroconvulsive Therapy (ICD-10-PCS; principal; 2018-01-12 07:15)
DX: F33.2 Major depressive disorder, recurrent severe without psychotic features (principal)
CPT/HCPCS: 90870; 94760

== ENCOUNTER 2018-01-13 05:48 | Day surgery (SDC) | payer BC ==
[2018-01-13 08:05] VITALS: TEMP 97.8; BMI 20.9
[2018-01-13] MEDS ORDERED: KETAMINE HCL 500 MG/10 ML VIAL ONE (08:41)
[2018-01-13 09:46] VITALS: BP 98/70; PULSE 59
== END 2018-01-13 10:00 | disposition home or self-care (01) ==
LOC: FECT 05:48
PROVIDERS: ATTEND Psychiatry & Neurology Psychiatry
PROC: GZB4ZZZ Other Electroconvulsive Therapy (ICD-10-PCS; principal; 2018-01-13 08:00)
DX: F33.2 Major depressive disorder, recurrent severe without psychotic features (principal)
CPT/HCPCS: 90870; 94760

== ENCOUNTER 2018-01-17 05:46 | Day surgery (SDC) | payer BC ==
[2018-01-13 13:23] VITALS: BMI 20.9
[2018-01-17] MEDS ORDERED: KETAMINE HCL 500 MG/10 ML VIAL ONE (07:57)
[2018-01-17 11:45] VITALS: TEMP 97.5
[2018-01-17 11:54] VITALS: BP 94/60; PULSE 65
== END 2018-01-17 10:10 | disposition home or self-care (01) ==
LOC: FECT 05:46
PROVIDERS: ATTEND Psychiatry & Neurology Psychiatry
PROC: GZB4ZZZ Other Electroconvulsive Therapy (ICD-10-PCS; principal; 2018-01-17 08:15)
DX: F33.2 Major depressive disorder, recurrent severe without psychotic features (principal)
CPT/HCPCS: 90870; 94760

== ENCOUNTER 2018-01-19 05:40 | Day surgery (SDC) | payer BC ==
[2018-01-19 06:08] VITALS: TEMP 97.9; BMI 20.9
[2018-01-19] MEDS ORDERED: KETAMINE HCL 500 MG/10 ML VIAL ONE (07:05)
[2018-01-19 08:38] VITALS: PULSE 50
[2018-01-19 09:12] VITALS: BP 122/68
== END 2018-01-19 08:50 | disposition home or self-care (01) ==
LOC: FECT 05:40
PROVIDERS: ATTEND Psychiatry & Neurology Psychiatry
PROC: GZB4ZZZ Other Electroconvulsive Therapy (ICD-10-PCS; principal; 2018-01-19 08:30)
DX: F33.2 Major depressive disorder, recurrent severe without psychotic features (principal)
CPT/HCPCS: 90870; 94760

== ENCOUNTER 2018-01-20 05:44 | Day surgery (SDC) | payer BC ==
[2018-01-20 07:40] VITALS: BMI 20.9
[2018-01-20] MEDS ORDERED: ONDANSETRON 4 MG/2 ML VIAL IVPUSH PRN (07:58)
[2018-01-20] MEDS ORDERED: oxyCODONE HCL 5 MG TABLET PO PRN (07:58)
[2018-01-20] MEDS ORDERED: KETAMINE HCL 500 MG/10 ML VIAL ONE (08:04)
[2018-01-20 09:09] VITALS: TEMP 98.6
[2018-01-20 09:39] VITALS: BP 125/68; PULSE 53
== END 2018-01-20 09:40 | disposition home or self-care (01) ==
LOC: FECT 05:44
PROVIDERS: ATTEND Psychiatry & Neurology Psychiatry
PROC: GZB4ZZZ Other Electroconvulsive Therapy (ICD-10-PCS; principal; 2018-01-20 07:30)
DX: F33.2 Major depressive disorder, recurrent severe without psychotic features (principal)
CPT/HCPCS: 90870; 94760

== ENCOUNTER 2018-01-24 05:38 | Day surgery (SDC) | payer BC ==
[2018-01-24 06:15] VITALS: BMI 20.9
[2018-01-24] MEDS ORDERED: KETAMINE HCL 500 MG/10 ML VIAL ONE (06:51)
[2018-01-24 08:12] VITALS: TEMP 97.7
[2018-01-24 08:13] VITALS: BP 99/60; PULSE 56
== END 2018-01-24 08:30 | disposition home or self-care (01) ==
LOC: FECT 05:38
PROVIDERS: ATTEND Psychiatry & Neurology Psychiatry
PROC: GZB4ZZZ Other Electroconvulsive Therapy (ICD-10-PCS; principal; 2018-01-24 07:45)
DX: F33.2 Major depressive disorder, recurrent severe without psychotic features (principal)
CPT/HCPCS: 90870; 94760

== ENCOUNTER 2018-01-26 05:34 | Day surgery (SDC) | payer BC ==
[2018-01-25 08:39] VITALS: BMI 20.9
[2018-01-26] MEDS ORDERED: ONDANSETRON 4 MG/2 ML VIAL IVPUSH PRN (07:48)
[2018-01-26] MEDS ORDERED: LACTATED RINGERS SOLUTION 1,000 ML IV SCH (08:00)
[2018-01-26 08:05] VITALS: TEMP 97.9
[2018-01-26 08:34] VITALS: BP 106/68; PULSE 52
== END 2018-01-26 08:35 | disposition home or self-care (01) ==
LOC: FECT 05:34
PROVIDERS: ATTEND Psychiatry & Neurology Psychiatry
PROC: GZB4ZZZ Other Electroconvulsive Therapy (ICD-10-PCS; principal; 2018-01-26 07:15)
DX: F33.2 Major depressive disorder, recurrent severe without psychotic features (principal)
CPT/HCPCS: 90870; 94760

== ENCOUNTER 2018-01-27 05:43 | Day surgery (SDC) | payer BC ==
[2018-01-25 08:42] VITALS: BMI 21.4
[2018-01-27 09:22] VITALS: TEMP 98.2
[2018-01-27 09:31] VITALS: BP 99/60; PULSE 56
== END 2018-01-27 09:35 | disposition home or self-care (01) ==
LOC: FECT 05:43
PROVIDERS: ATTEND Psychiatry & Neurology Psychiatry
PROC: GZB4ZZZ Other Electroconvulsive Therapy (ICD-10-PCS; principal; 2018-01-27 09:00)
DX: F33.2 Major depressive disorder, recurrent severe without psychotic features (principal)
CPT/HCPCS: 90870; 94760

== ENCOUNTER 2018-01-31 05:43 | Day surgery (SDC) | payer BC ==
[2018-01-27 13:17] VITALS: BMI 20.9
[2018-01-31 07:08] VITALS: TEMP 98
--- NOTE | 2018-01-31 07:14 | HP ---
Admitting History and Physical - Admission Chief Complaint: ect History of Present Illness: Patient is a 62 y/o female with a pmh of crohn's disease, [place], CAD, depression, HLD, and stress induced cardiomyopathy. Patient presents for ect, her last ect was 01/27/18. Patient reports no significant improvement in depressive symptoms since starting ect. She reports an increase in her prestiq last week but has not felt any improvement in depressive symptoms with the medication increase. Patient denies any suicidal or homicidal ideation, visual or auditory hallucinations. patient reports compliance with prescribed medications. History Source: Patient Limitations to Obtaining History: No Limitations - Past Medical History Cardiovascular: Yes: CAD, Hyperlipdemia, [place] Gastrointestinal: Yes: Crohn's Disease - Smoking History Smoking history: Never smoked Have you smoked in the past 12 months: No - Alcohol/Substance Use Hx Alcohol Use: No History of Substance Use: reports: None - Social History Usual Living Arrangement: Yes: With Spouse ADL: Independent History of Recent Travel: No Home Medications - Allergies Allergies/Adverse Reactions: Allergies Allergy/AdvReac Type Severity Reaction Status Date / Time Sulfa (Sulfonamide Allergy Intermediate Rash Verified 07/15/17 06:08 Antibiotics) - Home Medications Home Medications: Ambulatory Orders Atenolol [Tenormin] 12.5 mg PO HS 07/05/17 Multivitamins [Multivit ([facility] Formulary)] 1 tab PO DAILY 07/05/17 Omeprazole 40 mg PO DAILY 07/05/17 Pentosan Polysulfate Sodium [Elmiron] 300 mg PO BID 07/05/17 Raloxifene HCl [Evista (Nf) -] 60 mg PO HS 07/05/17 Rosuvastatin [Crestor -] 20 mg PO HS 07/05/17 Vit C/E/Zn/Coppr/Lutein/Zeaxan [Preservision Areds 2 Softgel] 1 each PO BID Cyclosporine [Restasis] 1 drop OU BID 07/06/17 Iron,Carbonyl [Feosol] 45 mg PO BID 11/25/17 Pramipexole Di-HCl [Mirapex] 0.25 mg PO HS 11/25/17 Ustekinumab [Stelara] 90 mg SQ ASDIR 11/25/17 Aspirin [Aspirin EC] 81 mg PO HS 12/27/17 Eszopiclone [Lunesta] 3 mg PO HS 12/27/17 clonazePAM [Klonopin -] 0.25 mg PO BID PRN 01/10/18 Ondansetron [Zofran -] 4 mg PO ASDIR PRN 01/13/18 Desvenlafaxine Succinate [Pristiq ER] 100 mg PO DAILY 01/31/18 Family Disease History - Family Disease History Family Disease History: Heart Disease: Father, Mother, Other: Daughter (heroin abuse ) Review of Systems - Review of Systems Constitutional: reports: No Symptoms Eyes: reports: No Symptoms HENT: reports: No Symptoms Neck: reports: No Symptoms Cardiovascular: reports: No Symptoms Respiratory: reports: No Symptoms Gastrointestinal: reports: No Symptoms Genitourinary: reports: No Symptoms Musculoskeletal: reports: No Symptoms Integumentary: reports: No Symptoms Neurological: reports: No Symptoms Endocrine: reports: No Symptoms Hematology/Lymphatic: reports: No Symptoms Psychiatric: reports: No Symptoms Physical Examination Vital Signs: Vital Signs Temperature 98.0 F 01/31/18 07:04 Pulse Rate 51 L 01/31/18 07:04 Respiratory Rate 01/31/18 07:04 Blood Pressure 92/55 01/31/18 07:04 O2 Sat by Pulse Oximetry (%) 100 01/31/18 07:04 Constitutional: Yes: Well Nourished, No Distress, Calm Eyes: Yes: WNL, Conjunctiva Clear, EOM Intact HENT: Yes: WNL, Atraumatic, Normocephalic Neck: Yes: WNL, Supple, Trachea Midline Cardiovascular: Yes: WNL, Regular Rate and Rhythm, S1, S2 Respiratory: Yes: WNL, Regular, CTA Bilaterally Gastrointestinal: Yes: WNL, Normal Bowel Sounds, Soft ...Rectal Exam: Yes: Deferred Renal/: Yes: WNL Musculoskeletal: Yes: WNL Extremities: Yes: WNL Edema: No Peripheral Pulses WNL: Yes Peripheral Pulses: Left Radial: 4+, Right Radial: 4+, Left Doralis Pedis: 3+, Right Dorsalis Pedis: 3+, Left Femoral: 3+, Right Femoral: 3+ Integumentary: Yes: WNL Neurological: Yes: WNL, Alert, Oriented ...Motor Strength: WNL Psychiatric: Yes: WNL, Alert, Oriented Labs: reviewed 12/07 Imaging - Results EKG: Image Reviewed, Other (nsr) Assessment/Plan patient is a 62 y/o female that presents for ect, labs and ekg reviewed patient appears euvolemic on exam she is medically optimized for procedure informed consent, risks/benefits to be obtained by Dr George
[2018-01-31] MEDS ORDERED: KETAMINE HCL 500 MG/10 ML VIAL ONE (07:49)
[2018-01-31 09:14] VITALS: BP 96/56; PULSE 49
== END 2018-01-31 09:35 | disposition home or self-care (01) ==
LOC: FECT 05:43
PROVIDERS: ATTEND Psychiatry & Neurology Psychiatry
PROC: GZB4ZZZ Other Electroconvulsive Therapy (ICD-10-PCS; principal; 2018-01-31 08:00)
DX: F33.2 Major depressive disorder, recurrent severe without psychotic features (principal)
CPT/HCPCS: 90870; 94760

== ENCOUNTER 2018-02-09 05:36 | Day surgery (SDC) | payer BC ==
[2018-02-09 06:28] VITALS: TEMP 97.5; BMI 20.1
[2018-02-09] MEDS ORDERED: KETAMINE HCL 500 MG/10 ML VIAL ONE (07:15)
[2018-02-09] MEDS ORDERED: ACETAMINOPHEN 325 MG TABLET (FP) PO PRN (07:45)
[2018-02-09 08:38] VITALS: BP 92/59; PULSE 66
== END 2018-02-09 09:03 | disposition home or self-care (01) ==
LOC: FECT 05:36
PROVIDERS: ATTEND Psychiatry & Neurology Psychiatry
PROC: GZB4ZZZ Other Electroconvulsive Therapy (ICD-10-PCS; principal; 2018-02-09 07:15)
DX: F33.2 Major depressive disorder, recurrent severe without psychotic features (principal)
CPT/HCPCS: 90870; 94760

== ENCOUNTER 2018-02-10 05:44 | Day surgery (SDC) | payer BC ==
[2018-02-09 09:23] VITALS: BMI 20.1
[2018-02-10] MEDS ORDERED: KETAMINE HCL 500 MG/10 ML VIAL ONE (07:47)
[2018-02-10 09:09] VITALS: TEMP 97.5
[2018-02-10 11:30] VITALS: BP 100/61; PULSE 61
== END 2018-02-10 10:00 | disposition home or self-care (01) ==
LOC: FECT 05:44
PROVIDERS: ATTEND Psychiatry & Neurology Psychiatry
PROC: GZB4ZZZ Other Electroconvulsive Therapy (ICD-10-PCS; principal; 2018-02-10 07:00)
DX: F33.2 Major depressive disorder, recurrent severe without psychotic features (principal)
CPT/HCPCS: 90870; 94760

== ENCOUNTER 2018-02-14 05:47 | Day surgery (SDC) | payer BC ==
[2018-02-13 15:48] VITALS: BMI 20.1
[2018-02-14 07:28] VITALS: TEMP 97.6
[2018-02-14] MEDS ORDERED: KETAMINE HCL 500 MG/10 ML VIAL ONE (08:46)
[2018-02-14 11:33] VITALS: BP 101/61; PULSE 77
== END 2018-02-14 10:15 | disposition home or self-care (01) ==
LOC: FECT 05:47
PROVIDERS: ATTEND Psychiatry & Neurology Psychiatry
PROC: GZB4ZZZ Other Electroconvulsive Therapy (ICD-10-PCS; principal; 2018-02-14 08:00)
DX: F33.2 Major depressive disorder, recurrent severe without psychotic features (principal)
CPT/HCPCS: 90870; 94760

== ENCOUNTER 2018-02-16 05:45 | Day surgery (SDC) | payer BC ==
[2018-02-16 06:24] VITALS: BMI 20.4
[2018-02-16 07:59] VITALS: TEMP 97.6
[2018-02-16 09:01] VITALS: BP 107/66; PULSE 56
== END 2018-02-16 08:55 | disposition home or self-care (01) ==
LOC: FECT 05:45
PROVIDERS: ATTEND Psychiatry & Neurology Psychiatry
PROC: GZB4ZZZ Other Electroconvulsive Therapy (ICD-10-PCS; principal; 2018-02-16 07:30)
DX: F33.2 Major depressive disorder, recurrent severe without psychotic features (principal)
CPT/HCPCS: 90870; 94760

== ENCOUNTER 2018-02-23 05:53 | Day surgery (SDC) | payer BC, OTHER ==
[2018-02-20 12:46] VITALS: BMI 20.2
[2018-02-23 09:04] VITALS: TEMP 97.7
[2018-02-23 09:30] VITALS: BP 86/58; PULSE 63
== END 2018-02-23 09:40 | disposition home or self-care (01) ==
LOC: FECT 05:53
PROVIDERS: ATTEND Psychiatry & Neurology Psychiatry
PROC: GZB4ZZZ Other Electroconvulsive Therapy (ICD-10-PCS; principal; 2018-02-23 07:45)
DX: F33.2 Major depressive disorder, recurrent severe without psychotic features (principal)
CPT/HCPCS: 90870; 94760

== ENCOUNTER 2018-02-24 05:55 | Day surgery (SDC) | payer OTHER ==
[2018-02-23 13:31] VITALS: BMI 20.2
[2018-02-24 08:46] VITALS: TEMP 98.4
[2018-02-24 08:47] VITALS: BP 103/66; PULSE 56
[2018-02-24] MEDS ORDERED: ONDANSETRON 4 MG/2 ML VIAL IVPUSH PRN (09:32)
== END 2018-02-24 08:55 | disposition home or self-care (01) ==
LOC: FECT 05:55
PROVIDERS: ATTEND Psychiatry & Neurology Psychiatry
PROC: GZB4ZZZ Other Electroconvulsive Therapy (ICD-10-PCS; principal; 2018-02-24 09:15)
DX: F33.2 Major depressive disorder, recurrent severe without psychotic features (principal)

== ENCOUNTER 2018-03-02 05:41 | Day surgery (SDC) | payer OTHER ==
[2018-03-02 06:35] VITALS: TEMP 98; BMI 20.2
[2018-03-02] MEDS ORDERED: ONDANSETRON 4 MG/2 ML VIAL IVPUSH PRN (07:02)
--- NOTE | 2018-03-02 08:16 | HP ---
Admitting History and Physical - Admission History of Present Illness: Patient is a 63 y/o female with a past medical history of crohn's disease, VA, CAD, depression, HLD, and stress induced cardiomyopathy. Patient presents for ect, she has been undergoing ect since 2016. Her last ect was 02/28. She reports feeling well, reports minimal improvement of depressive symptoms since starting ect. She denies any changes to medications patient denies any recent illness or hospitalizations. She denies any suicidal or homicidal ideation, visual or auditory hallucinations. History Source: Patient Limitations to Obtaining History: No Limitations - Past Medical History Cardiovascular: Yes: CAD, Hyperlipdemia, VA Gastrointestinal: Yes: Crohn's Disease - Past Surgical History Past Surgical History: Yes: None - Smoking History Smoking history: Never smoked Have you smoked in the past 12 months: No - Alcohol/Substance Use Hx Alcohol Use: No History of Substance Use: reports: None - Social History Usual Living Arrangement: Yes: With Spouse ADL: Independent History of Recent Travel: No Home Medications - Allergies Allergies/Adverse Reactions: Allergies Allergy/AdvReac Type Severity Reaction Status Date / Time Sulfa (Sulfonamide Allergy Intermediate Rash Verified 02/23/18 13:07 Antibiotics) - Home Medications Home Medications: Ambulatory Orders Multivitamins [Multivit ([facility] Formul[facility])] 1 tab PO DAILY 07/05/17 Omeprazole 40 mg PO DAILY 07/05/17 Pentosan Polysulfate Sodium [Elmiron] 300 mg PO BID 07/05/17 Raloxifene HCl [Evista (Nf) -] 60 mg PO HS 07/05/17 Rosuvastatin [Crestor -] 20 mg PO HS 07/05/17 Vit C/E/Zn/Coppr/Lutein/Zeaxan [Preservision Areds 2 Softgel] 1 each PO BID Cyclosporine [Restasis] 1 drop OU BID 07/06/17 Iron,Carbonyl [Feosol] 45 mg PO BID 11/25/17 Pramipexole Di-HCl [Mirapex] 0.25 mg PO HS 11/25/17 Ustekinumab [Stelara] 90 mg SQ ASDIR 11/25/17 Aspirin [Aspirin EC] 81 mg PO HS 12/27/17 Eszopiclone [Lunesta] 3 mg PO HS 12/27/17 clonazePAM [Klonopin -] 0.25 mg PO BID PRN 01/10/18 Ondansetron [Zofran -] 4 mg PO ASDIR PRN 01/13/18 Desvenlafaxine Succinate [Pristiq] 100 mg PO DAILY 01/31/18 Family Disease History - Family Disease History Family Disease History: Heart Disease: Father, Mother, Other: Daughter (heroin abuse ) Review of Systems - Review of Systems Constitutional: reports: No Symptoms Eyes: reports: No Symptoms HENT: reports: No Symptoms Neck: reports: No Symptoms Cardiovascular: reports: No Symptoms Respiratory: reports: No Symptoms Gastrointestinal: reports: No Symptoms Genitourinary: reports: No Symptoms Musculoskeletal: reports: No Symptoms Integumentary: reports: No Symptoms Neurological: reports: No Symptoms Endocrine: reports: No Symptoms Hematology/Lymphatic: reports: No Symptoms Psychiatric: reports: No Symptoms Physical Examination Vital Signs: Vital Signs Temperature 98.0 F 03/02/18 06:30 Pulse Rate 81 03/02/18 07:52 Respiratory Rate 18 03/02/18 07:52 Blood Pressure 118/75 03/02/18 07:52 O2 Sat by Pulse Oximetry (%) 97 03/02/18 07:50 Constitutional: Yes: Well Nourished, No Distress, Calm Eyes: Yes: WNL, Conjunctiva Clear, EOM Intact HENT: Yes: WNL, Atraumatic, Normocephalic Neck: Yes: WNL, Supple, Trachea Midline Cardiovascular: Yes: WNL, Regular Rate and Rhythm, S1, S2 Respiratory: Yes: WNL, Regular, CTA Bilaterally Gastrointestinal: Yes: WNL, Normal Bowel Sounds, Soft ...Rectal Exam: Yes: Deferred Renal/: Yes: WNL Breast(s): Yes: WNL Musculoskeletal: Yes: WNL Extremities: Yes: WNL Edema: No Peripheral Pulses WNL: Yes Peripheral Pulses: Left Radial: 4+, Right Radial: 4+, Left Doralis Pedis: 3+, Right Dorsalis Pedis: 3+, Left Femoral: 3+, Right Femoral: 3+ Integumentary: Yes: WNL Neurological: Yes: WNL, Alert, Oriented ...Motor Strength: WNL Psychiatric: Yes: WNL, Alert, Oriented Labs: reviewed 12/07 Imaging - Results EKG: Other (nsr) Assessment/Plan patient is a 63 y/o female, presents for ect, labs and ekg reviewed patient is medically optimized for procedure informed consent, risks/benefits to be obtained by Dr George
[2018-03-02 08:42] VITALS: BP 100/69; PULSE 72
== END 2018-03-02 08:50 | disposition home or self-care (01) ==
LOC: FECT 05:41
PROVIDERS: ATTEND Psychiatry & Neurology Psychiatry
PROC: GZB4ZZZ Other Electroconvulsive Therapy (ICD-10-PCS; principal; 2018-03-02 08:00)
DX: F33.2 Major depressive disorder, recurrent severe without psychotic features (principal)
CPT/HCPCS: 90870; 94760

== ENCOUNTER 2018-03-03 05:52 | Day surgery (SDC) | payer OTHER ==
[2018-03-02 14:17] VITALS: BMI 20.2
[2018-03-03 09:41] VITALS: TEMP 97.9
[2018-03-03 11:00] VITALS: BP 112/74; PULSE 62
== END 2018-03-03 10:30 | disposition home or self-care (01) ==
LOC: FECT 05:52
PROVIDERS: ATTEND Psychiatry & Neurology Psychiatry
PROC: GZB4ZZZ Other Electroconvulsive Therapy (ICD-10-PCS; principal; 2018-03-03 09:30)
DX: F33.2 Major depressive disorder, recurrent severe without psychotic features (principal)
CPT/HCPCS: 90870; 94760

== ENCOUNTER 2018-03-16 05:52 | Day surgery (SDC) | payer OTHER ==
[2018-03-15 14:32] VITALS: BMI 20.2
[2018-03-16] MEDS ORDERED: ONDANSETRON 4 MG/2 ML VIAL IVPUSH PRN (07:18)
[2018-03-16 10:12] VITALS: TEMP 97.9
[2018-03-16 10:14] VITALS: BP 102/72; PULSE 61
== END 2018-03-16 10:30 | disposition home or self-care (01) ==
LOC: FECT 05:52
PROVIDERS: ATTEND Psychiatry & Neurology Psychiatry
PROC: GZB4ZZZ Other Electroconvulsive Therapy (ICD-10-PCS; principal; 2018-03-16 08:45)
DX: F33.2 Major depressive disorder, recurrent severe without psychotic features (principal)
CPT/HCPCS: 90870; 94760

== ENCOUNTER 2018-03-24 05:40 | Day surgery (SDC) | payer OTHER, MEDICARE ==
[2018-03-21 15:29] VITALS: BMI 20.2
[2018-03-24] MEDS ORDERED: ONDANSETRON 4 MG/2 ML VIAL IVPUSH PRN (07:43)
[2018-03-24] MEDS ORDERED: ACETAMINOPHEN 325 MG TABLET (FP) PO PRN (07:43)
[2018-03-24 08:54] VITALS: TEMP 97.7
[2018-03-24 09:42] VITALS: BP 101/67; PULSE 58
== END 2018-03-24 10:15 | disposition home or self-care (01) ==
LOC: FECT 05:40
PROVIDERS: ATTEND Psychiatry & Neurology Psychiatry
PROC: GZB4ZZZ Other Electroconvulsive Therapy (ICD-10-PCS; principal; 2018-03-24 08:00)
DX: F33.2 Major depressive disorder, recurrent severe without psychotic features (principal)
CPT/HCPCS: 90870; 94760

== ENCOUNTER 2018-04-11 05:40 | Day surgery (SDC) | payer OTHER, MEDICARE ==
[2018-04-04 14:54] VITALS: BMI 20.2
[2018-04-11 09:13] VITALS: TEMP 98.5
[2018-04-11 09:27] VITALS: BP 122/75; PULSE 73
[2018-04-11] MEDS ORDERED: ONDANSETRON 4 MG/2 ML VIAL IVPUSH PRN (09:41)
[2018-04-11] MEDS ORDERED: LACTATED RINGERS SOLUTION 1,000 ML IV SCH (09:45)
== END 2018-04-11 09:52 | disposition home or self-care (01) ==
LOC: FECT 05:40
PROVIDERS: ATTEND Psychiatry & Neurology Psychiatry
PROC: GZB4ZZZ Other Electroconvulsive Therapy (ICD-10-PCS; principal; 2018-04-11 07:30)
DX: F33.2 Major depressive disorder, recurrent severe without psychotic features (principal)
CPT/HCPCS: 90870; 94760